=== PATIENT | male | born 1995 | race Caucasian/White ===

== ENCOUNTER 2017-09-09 10:36 | Emergency (ER) | payer BC ==
[~2017-09-09] VITALS: Ht 177.8 cm; Wt 78.2 kg
[2017-09-09 12:09] VITALS: BP 130/80
== END 2017-09-09 12:12 | disposition home or self-care (01) ==
LOC: ER 10:36
DX: J04.0 Acute laryngitis (principal); J02.9 Acute pharyngitis, unspecified; Z88.5 Allergy status to narcotic agent; Z88.8 Allergy status to other drugs, medicaments and biological substances
CPT/HCPCS: 87081; 87880; 99284

== ENCOUNTER 2017-09-10 11:58 | Emergency (ER) | payer BC ==
[2017-09-10 12:00] VITALS: BP 114/73
== END 2017-09-10 12:51 | disposition home or self-care (01) ==
LOC: ER 11:59
DX: J02.9 Acute pharyngitis, unspecified (principal); G89.29 Other chronic pain; Z88.5 Allergy status to narcotic agent; Z88.8 Allergy status to other drugs, medicaments and biological substances
CPT/HCPCS: 99281

== ENCOUNTER 2018-11-09 09:32 | Emergency (ER) | payer BC ==
[~2018-11-09] VITALS: Ht 177.8 cm; Wt 86.4 kg
[2018-11-09] MEDS ORDERED: HYDROcodone/acetaminophen 10/325mg tab PO ONE (10:15)
[2018-11-09 10:47] VITALS: BP 129/74
--- NOTE | 2018-11-09 11:19 | NUR ---
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
[2018-11-09] MEDS ORDERED: CYCL-1 PO (12:27)
== END 2018-11-09 12:40 | disposition home or self-care (01) ==
LOC: ER 09:32
DX: G89.18 Other acute postprocedural pain (principal); M25.572 Pain in left ankle and joints of left foot; G89.29 Other chronic pain; Z46.89 Encounter for fitting and adjustment of other specified devices; Z98.890 Other specified postprocedural states; Z88.1 Allergy status to other antibiotic agents; Z88.5 Allergy status to narcotic agent; Z88.8 Allergy status to other drugs, medicaments and biological substances; Z79.899 Other long term (current) drug therapy
CPT/HCPCS: 29515; 99283

== ENCOUNTER 2019-05-28 13:07 | Emergency (ER) | payer BC ==
[~2019-05-28] VITALS: Ht 180.3 cm; Wt 92.7 kg
[~2019-05-28 13:07] MED LIST: CYCL-1 PO
[2019-05-28] MEDS ORDERED: methylPREDNISolone sod succ 125mg/2ml vial IV ONE (13:15)
[2019-05-28] MEDS ORDERED: oseltamivir phos 75mg capsule PO ONE (13:15)
[2019-05-28] MEDS ORDERED: ketorolac trometh. 30mg/ml inj. IV ONE (13:15)
[2019-05-28] MEDS ORDERED: normal saline 1000ML IV soln IV ONE (13:15)
[2019-05-28] MEDS ORDERED: CEPH250T PO (13:28)
[2019-05-28] MEDS ORDERED: ALBU6.7H9 INH (13:28)
[2019-05-28] MEDS ORDERED: TAM75C PO (13:28)
[2019-05-28] MEDS ORDERED: PRED20TA PO (13:28)
[2019-05-28 14:32] VITALS: BP 128/80
== END 2019-05-28 14:37 | disposition home or self-care (01) ==
LOC: ER 13:08
DX: J11.1 Influenza due to unidentified influenza virus with other respiratory manifestations (principal); G89.29 Other chronic pain; Z98.890 Other specified postprocedural states; Z88.1 Allergy status to other antibiotic agents; Z88.5 Allergy status to narcotic agent; Z88.8 Allergy status to other drugs, medicaments and biological substances; Z79.2 Long term (current) use of antibiotics; Z79.899 Other long term (current) drug therapy
CPT/HCPCS: 96374; 96375; 99284; J1885; J2930; J7030

== ENCOUNTER 2019-10-13 20:23 | Emergency (ER) | payer BC ==
[~2019-10-13] VITALS: Ht 180.3 cm; Wt 100.0 kg
[~2019-10-13 20:23] MED LIST changes: +ALBU6.7H9 INH
--- NOTE | 2019-10-13 20:39 | NUR ---
chest x ray complete
[2019-10-13 20:41] LABS: BASOPHILS % (AUTO) 0.4 % (0-1); EOSINOPHILS # (AUTO) 0.1 X10'3 (0-0.9); EOSINOPHILS % (AUTO) 1.5 % (0-6); HEMATOCRIT 46.1 % (42.0-52.0); HEMOGLOBIN 15.8 g/dl (14.0-17.9); LYMPHOCYTES # (AUTO) 2.3 X10'3 (1.1-4.8); LYMPHOCYTES % (AUTO) 27.2 % (21-51); MEAN CORPUSCULAR HEMOGLOBIN 29.8 PG (27.0-31.0); MEAN CORPUSCULAR HGB CONC 34.3 g/dL (33.0-36.5); MONOCYTES # (AUTO) 0.8 X10'3 (0-0.9); NEUTROPHILS # (AUTO) 5.3 X10'3 (1.8-7.7); NEUTROPHILS % (AUTO) 61.9 % (42-75); PLATELET COUNT 298 X10'3 (140-440); RED CELL DISTRIBUTION WIDTH 13.7 % (11.5-14.5); WHITE BLOOD COUNT 8.6 X10'3 (4.5-11.0)
[2019-10-13 20:56] LABS: ALANINE AMINOTRANSFERASE 37 U/L (12-78); ALBUMIN 4.7 G/DL (3.4-5.0); ALBUMIN/GLOBULIN RATIO 1.3 (1.1-1.5); ALKALINE PHOSPHATASE 108 IU/L (46-116); ANION GAP 9 (8-16); ASPARTATE AMINO TRANSFERASE 15 U/L (10-37); BILIRUBIN,TOTAL 0.8 MG/DL (0.1-1.0); BLOOD UREA NITROGEN 14 MG/DL (7-18); BUN/CREATININE RATIO 13.9 (5.4-32.0); CALCIUM 9.2 MG/DL (8.5-10.1); CHLORIDE 105 MMOL/L (99-107); CREATININE 1.01 MG/DL (0.60-1.10); GLUCOSE 105 MG/DL (70-104); POTASSIUM 3.7 MMOL/L (3.5-5.1); SODIUM 143 MMOL/L (135-145); TOTAL CARBON DIOXIDE 28.6 MMOL/L (24-32); TOTAL PROTEIN 8.3 G/DL (6.4-8.2); eGFR > 90 ML/MIN
[2019-10-13] MEDS ORDERED: normal saline 1000ML IV soln IVB ONE (21:10)
[2019-10-13 22:00] VITALS: BP 113/75
== END 2019-10-13 23:54 | disposition home or self-care (01) ==
LOC: ER 20:23 → EEVIPCON 20:23 → ER 23:54
DX: R07.89 Other chest pain (principal); R42 Dizziness and giddiness; R51 Headache; G89.29 Other chronic pain; Z98.890 Other specified postprocedural states; Z88.0 Allergy status to penicillin; Z79.899 Other long term (current) drug therapy; Z88.1 Allergy status to other antibiotic agents
CPT/HCPCS: 36415; 71045; 80053; 84484; 85025; 93005; 96360; 99285; J7030

== ENCOUNTER 2020-10-10 12:57 | Emergency (ER) | payer BC, OTHER ==
[~2020-10-10] VITALS: Ht 180.3 cm; Wt 210.0 kg
--- NOTE | 2020-10-10 13:35 | NUR ---
DR LEE NOTIFIED OF PT AND HIS COMPLAINTS: MD DOES NOT WANT ORDERS AT THIS POINT. PT GIVEN SNACKS, WATER, WASHCLOTH.
[2020-10-10] MEDS ORDERED: ondansetron/PF 4mg/2ml inj IV ONE (14:20)
[2020-10-10] MEDS ORDERED: normal saline 1000ML IV soln IVB ONE (14:20)
[2020-10-10] MEDS ORDERED: meclizine 12.5mg tablet PO ONE (14:20)
[2020-10-10 14:57] LABS: BASOPHILS % (AUTO) 0.4 % (0-1); EOSINOPHILS % (AUTO) 0.4 % (0-6); LYMPHOCYTES % (AUTO) 9.8 % (21-51); MEAN CORPUSCULAR HEMOGLOBIN 30.5 PG (27.0-31.0); MEAN CORPUSCULAR HGB CONC 34.9 g/dL (33.0-36.5); MEAN CORPUSCULAR VOLUME 87.4 FL (78-98); MEAN PLATELET VOLUME 8.2 FL (7.4-10.4); MONOCYTES # (AUTO) 0.6 X10'3 (0-0.9); MONOCYTES % (AUTO) 6.2 % (2-12); NEUTROPHILS # (AUTO) 8.7 X10'3 (1.8-7.7); NEUTROPHILS % (AUTO) 83.2 % (42-75); PLATELET COUNT 325 X10'3 (140-440); RED BLOOD COUNT 4.92 X10'6 (4.70-6.10); RED CELL DISTRIBUTION WIDTH 13.8 % (11.5-14.5); WHITE BLOOD COUNT 10.5 X10'3 (4.5-11.0)
[2020-10-10 15:09] LABS: ALANINE AMINOTRANSFERASE 56 U/L (12-78); ALBUMIN 4.4 G/DL (3.4-5.0); ALBUMIN/GLOBULIN RATIO 1.3 (1.1-1.5); ALKALINE PHOSPHATASE 84 IU/L (46-116); ANION GAP 10 (8-16); ASPARTATE AMINO TRANSFERASE 22 U/L (10-37); BLOOD UREA NITROGEN 14 MG/DL (7-18); BUN/CREATININE RATIO 14.1 (5.4-32.0); CALCIUM 8.8 MG/DL (8.5-10.1); CHLORIDE 104 MMOL/L (99-107); CREATININE 0.99 MG/DL (0.60-1.10); GLUCOSE 93 MG/DL (70-104); POTASSIUM 3.8 MMOL/L (3.5-5.1); SODIUM 141 MMOL/L (135-145); TOTAL CARBON DIOXIDE 27.3 MMOL/L (24-32); TOTAL PROTEIN 7.7 G/DL (6.4-8.2); eGFR > 90 ML/MIN
[2020-10-10] MEDS ORDERED: diazepam inj 5 MG/ML inj. IV ONE (15:25)
[2020-10-10] MEDS ORDERED: DIAZ5TAB22 PO (15:30)
[2020-10-10] MEDS ORDERED: MECL-159 PO (15:30)
[2020-10-10 16:09] VITALS: BP 115/69
== END 2020-10-10 16:11 | disposition home or self-care (01) ==
LOC: ER 12:57 → EEVIPCON 12:57 → ER 16:11
DX: R42 Dizziness and giddiness (principal); R11.0 Nausea; R53.1 Weakness; G89.29 Other chronic pain; Z98.890 Other specified postprocedural states; Z88.1 Allergy status to other antibiotic agents; Z88.8 Allergy status to other drugs, medicaments and biological substances; Z88.5 Allergy status to narcotic agent; Z79.899 Other long term (current) drug therapy
CPT/HCPCS: 36415; 80053; 82948; 85025; 93005; 96361; 96374; 96375; 99284; J2405; J3360; J7030; J8597

== ENCOUNTER 2020-12-23 21:21 | Emergency (ER) | payer OTHER ==
[~2020-12-23] VITALS: Ht 180.3 cm; Wt 95.5 kg
[~2020-12-23 21:21] MED LIST changes: +MECL-159 PO
[2020-12-23 21:23] VITALS: BP 118/78
== END 2020-12-23 21:51 | disposition home or self-care (01) ==
LOC: ER 21:21
DX: S92.512A Displaced fracture of proximal phalanx of left lesser toe(s), initial encounter for closed fracture (principal); M79.674 Pain in right toe(s); G89.29 Other chronic pain; Z98.890 Other specified postprocedural states; Z88.1 Allergy status to other antibiotic agents; Z88.8 Allergy status to other drugs, medicaments and biological substances; Z88.5 Allergy status to narcotic agent; Z79.899 Other long term (current) drug therapy; X58.XXXA Exposure to other specified factors, initial encounter; Y93.89 Activity, other specified; Y92.89 Other specified places as the place of occurrence of the external cause; Y99.8 Other external cause status
CPT/HCPCS: 73630; 99283